=== PATIENT | male | born 1970 | race Caucasian/White ===

== ENCOUNTER 2018-12-12 15:22 | Emergency (ER) | payer OTHER ==
[~2018-12-12] VITALS: Ht 190.5 cm; Wt 92.1 kg
[2018-12-12] MEDS ORDERED: BUPR100T6 PO (15:42)
[2018-12-12] MEDS ORDERED: FINA1TAB PO (15:42)
[2018-12-12] MEDS ORDERED: MORPHINE SULFATE 4 MG/1 ML DISP.SYRIN ONE (15:43)
[2018-12-12] MEDS ORDERED: MORPHINE SULFATE 2 MG/1 ML DISP.SYRIN ONE (15:44)
[2018-12-12] MEDS ORDERED: ONDANSETRON 4 MG/2 ML VIAL ONE (15:44)
[2018-12-12] MEDS ORDERED: ONDANSETRON IV *ER 4 MG/2 ML VIAL IV ONE (15:45)
[2018-12-12] MEDS ORDERED: MORPHINE SULFATE 4 MG/1 ML DISP.SYRIN IV ONE (15:45)
[2018-12-12] MEDS ORDERED: TDAP DIPH,PERTUSS,TET VAC/PF 0.5 ML DISP.SYRIN IM ONE ×2 (16:00→16:01)
== END 2018-12-30 12:50 | disposition home or self-care (01) ==
LOC: ER 15:24
DX: T63.514A Toxic effect of contact with stingray, undetermined, initial encounter (principal); S91.332A Puncture wound without foreign body, left foot, initial encounter; F32.9 Major depressive disorder, single episode, unspecified; Z79.899 Other long term (current) drug therapy; X58.XXXA Exposure to other specified factors, initial encounter; Y93.89 Activity, other specified; Y92.89 Other specified places as the place of occurrence of the external cause; Y99.8 Other external cause status
CPT/HCPCS: 73630; 90715; A4663; J2270; J2405; J7030